=== PATIENT | female | born 1960 | race Caucasian/White ===

== ENCOUNTER 2016-12-05 10:37 | Day surgery (SDC) | payer BC ==
[2016-12-04 09:40] VITALS: BMI 38.4
[~2016-12-05 10:37] MED LIST: LACTATED RINGERS 1,000 ML IV SCH
[2016-12-05 11:13] VITALS: RESP 16; TEMP 97.7
[2016-12-05] MEDS ORDERED: PROPOFOL 10 MG/ML 20 ML VIAL IV ONE (11:55)
--- NOTE | 2016-12-05 11:58 | P.GSHP ---
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 She's had issues with reflux. She has a known hiatal hernia. - Constitutional Constitutional: Reports as per HPI Past Medical History Past Medical History: GERD/Reflux, Hyperlipidemia Additional Past Medical History / Comment(s): hiatal hernia History of Any Multi-Drug Resistant Organisms: None Reported Past Surgical History: Bladder Surgery, Hernia Repair, Hysterectomy, Joint Replacement Additional Past Surgical History / Comment(s): pasha. knee replacement Past Anesthesia/Blood Transfusion Reactions: No Reported Reaction Past Psychological History: Anxiety, Depression Smoking Status: Never smoker Past Alcohol Use History: Rare Past Drug Use History: None Reported - Past Family History Mother Family Medical History: No Reported History Medications and Allergies Home Medications Medication Instructions Recorded Confirmed Type Omeprazole [PriLOSEC] 40 mg PO HS 12/04/16 12/05/16 History Potassium 99 mg PO DAILY 12/04/16 12/05/16 History Simvastatin [Zocor] 40 mg PO HS 12/04/16 12/05/16 History Venlafaxine HCl [Effexor] 75 mg PO DAILY 12/04/16 12/05/16 History buPROPion XL [Wellbutrin Xl] 150 mg PO HS 12/04/16 12/05/16 History Allergies Allergy/AdvReac Type Severity Reaction Status Date / Time nickel Allergy Unknown Verified 12/04/16 09:22 Surgical - Exam Vital Signs Temp Pulse Resp BP Pulse Ox 97.7 F 82 16 186/87 97 12/05/16 11:12 12/05/16 11:12 12/05/16 11:12 12/05/16 11:12 12/05/16 11:12 - General well developed, no distress - Eyes PERRL - ENT normal pinna - Neck no masses - Respiratory normal expansion - Cardiovascular Rhythm: regular - Abdomen Abdomen: soft, non tender Assessment and Plan Plan: GERD. We'll perform EGD.
--- NOTE | 2016-12-05 12:07 | P.OP ---
Date of Procedure: 12/05/16 Preoperative Diagnosis: GERD Postoperative Diagnosis: Antral gastritis Small hiatal hernia Mild esophagitis Procedure(s) Performed: EGD Anesthesia: MAC Surgeon: Rogelio Puentes Pathology: other (Antrum, esophagus) Condition: stable Disposition: PACU Description of Procedure: The patient's placed on the endoscopy table in the lateral position. She received IV sedation. The gastroscope some placed oropharynx and passed into the esophagus and into the stomach. The scope was then placed through the pylorus. First and second portion of duodenum appeared normal. Scope was then brought back the antrum and appeared to be some evidence of inflammation. This area is biopsied. The scope was then retroflexed and the remainder of the stomach appeared normal. There was a small hiatal hernia. The distal esophagus appeared minimally inflamed a biopsies performed. The GE junction was at 39 cm. The proximal esophagus appeared normal. Scope was withdrawn for patient.
[2016-12-05 12:33] VITALS: BP 140/90; PULSE 70
== END 2016-12-05 13:27 | disposition home or self-care (01) ==
LOC: ORWHC2ENDO 10:37
PROVIDERS: ATTEND Surgery
DX: K21.0 Gastro-esophageal reflux disease with esophagitis (principal); K29.50 Unspecified chronic gastritis without bleeding; K44.9 Diaphragmatic hernia without obstruction or gangrene; E78.5 Hyperlipidemia, unspecified; F41.9 Anxiety disorder, unspecified; F32.9 Major depressive disorder, single episode, unspecified; Z79.899 Other long term (current) drug therapy; Z91.09 Other allergy status, other than to drugs and biological substances
CPT/HCPCS: 88305; 88342; 43239; J2704

== ENCOUNTER → 2018-06-04 | Outpatient (CLI) | payer BC ==
[2018-06-04 15:41] VITALS: BP 145/83; PULSE 70; RESP 18; TEMP 98.5; BMI 41.1
--- NOTE | 2018-06-04 16:35 | P.GSHP ---
History of Present Illness H&P Date: 06/04/18 Chief Complaint: Mammogram left breast The patient is a 58-year-old white female who presents with a complaint of a mammographic abnormality noted in her left breast. This was in the upper outer quadrant region. This was not seen on ultrasound. The patient states that she was told she did not have any lesions of concern in the right breast although the report is not present at this time. The patient denies any masses or nodules in either breast. She denies any pain in either breast. She denies any nipple discharge or skin changes of either breast. The patient has not had any trauma or infection in either breast. She did have a benign breast biopsy in the past. Family history: Paternal grandmother: Breast cancer Father: Cancer he was a smoker Hormonal history: Menarche: 10 Pregnancies: 4, 1 miscarriage 3 live births, firstborn at 20, did breast feed 2 children Menopause: Her 40s control pills: Negative Hormones: Negative Past surgical history: 1. Cholecystectomy 2. Appendectomy 3. Tonsillectomy 4. Bilateral knee replacement 5. hysterectomy with bladder suspension 6. Hernia repair Medical history: 1. Reflux 2. Depression Social history: Smoking: Negative Alcohol: Negative Drugs: Negative - Constitutional Comment: BMI 41.2 Constitutional: Denies chills, Denies fever - EENT Eyes: denies blurred vision, denies pain Ears: deny: decreased hearing, tinnitus Ears, nose, mouth and throat: Denies headache, Denies sore throat - Breasts Breasts: bilateral: as per HPI - Cardiovascular Cardiovascular: Reports high blood pressure, Denies chest pain, Denies shortness of breath - Respiratory Respiratory: Denies cough, Denies 7 - Gastrointestinal Gastrointestinal: Denies abdominal pain, Denies diarrhea, Denies nausea, Denies vomiting - Genitourinary (Female) Genitourinary: Denies dysuria, Denies hematuria - Menstruation Menstruation: Reports postmenopausal - Genitourinary (Male) Genitourinary: Denies dysuria, Denies hematuria - Musculoskeletal Comment: bilateral knee replacement/arthritis - Integumentary Integumentary: Denies pruritus, Denies rash - Neurological Neurological: Denies numbness, Denies weakness - Psychiatric Psychiatric: Reports anxiety, Reports depression - Endocrine Endocrine: Denies fatigue, Denies weight change - Hematologic/Lymphatic Comment: none - Allergic/Immunologic Comment: as noted Past Medical History Past Medical History: GERD/Reflux, Hyperlipidemia Additional Past Medical History / Comment(s): hiatal hernia History of Any Multi-Drug Resistant Organisms: None Reported Past Surgical History: Bladder Surgery, Hernia Repair, Hysterectomy, Joint Replacement Additional Past Surgical History / Comment(s): pasha. knee replacement Past Anesthesia/Blood Transfusion Reactions: No Reported Reaction Past Psychological History: Anxiety, Depression Smoking Status: Never smoker Past Alcohol Use History: Rare Past Drug Use History: None Reported - Past Family History Mother Family Medical History: No Reported History Medications and Allergies Home Medications Medication Instructions Recorded Confirmed Type Omeprazole [PriLOSEC] 40 mg PO HS 12/04/16 06/04/18 History Potassium 99 mg PO DAILY 12/04/16 06/04/18 History Simvastatin [Zocor] 40 mg PO HS 12/04/16 06/04/18 History Venlafaxine HCl [Effexor] 75 mg PO DAILY 12/04/16 06/04/18 History buPROPion XL [Wellbutrin Xl] 150 mg PO HS 12/04/16 06/04/18 History Metoprolol Tartrate [Lopressor] 50 mg PO DAILY 06/04/18 06/04/18 History Allergies Allergy/AdvReac Type Severity Reaction Status Date / Time nickel Allergy Unknown Verified 12/04/16 09:22 Surgical - Exam Vital Signs Temp Pulse Resp BP Pulse Ox 98.5 F 70 18 145/83 96 06/04/18 15:34 06/04/18 15:34 06/04/18 15:34 06/04/18 15:34 06/04/18 15:34 BMI 41.2 - General obese - Eyes normal ocular movement - ENT no hearing loss, no congestion - Neck no masses, trachea midline - Respiratory normal respiratory effort, clear to auscultation - Cardiovascular Rhythm: regular Heart Sounds: normal: S1, S2 - Abdomen Abdomen: soft, non tender, no guarding, no rigid, no rebound - Integumentary tattoo no abnormal pigmentation - Neurologic no disoriented, no combative - Musculoskeletal normal gait, normal posture - Psychiatric oriented to time, oriented to person, oriented to place, speech is normal, memory intact Breast examination: Right breast: Multi-positional exam no dominant masses or nodules of concern Right axilla: No adenopathy of concern Left breast: Slight increase in fullness in the left breast in the upper outer quadrant region no discrete masses or nodules of concern are multi-positional exam Left axilla: No adenopathy of concern Results Report of diagnostic mammogram and ultrasound left breast reviewed Assessment and Plan Assessment: Impression: 1. Radiographic abnormality left breast 2. Ultrasound did not find lesion concordant with that seen on mammographic abnormality left breast 3. Depression 4. HTN Plan: 1. Stereotactic core biopsy left breast 2. Will obtain radiographs [facility] 3. Medical management of medical problems Risk and benefits sister tactic core biopsy were discussed with the patient and she wishes to proceed. Cc: Donna Katz
== END ==
LOC: WWCWWP 15:12
PROVIDERS: ATTEND Surgery
DX: Z53.9 Procedure and treatment not carried out, unspecified reason (principal)

== ENCOUNTER → 2018-06-17 | Day surgery (SDC) | payer BC ==
[2018-06-17 07:22] VITALS: RESP 16; BMI 41.1
[2018-06-17 08:44] VITALS: BP 139/84; PULSE 69; TEMP 98.4
--- NOTE | 2018-06-17 11:29 | P.OP ---
Date of Procedure: 06/17/18 Preoperative Diagnosis: Microcalcifications of concern left breast Postoperative Diagnosis: Microcalcifications of concern left breast in a spiculated area in the upper outer quadrant Procedure(s) Performed: Left breast stereotactic core biopsy Anesthesia: local Surgeon: Audrey Tuttle Estimated Blood Loss (ml): 0 Pathology: other (breast tissue) Condition: stable Disposition: same day Indications for Procedure: The patient is a 58-year-old white female who on a routine mammogram was noted to have an area of concern in the left breast. She subsequently underwent diagnostic left breast mammography with spot compression CC and MLO views. On the stereo is a persistent spiculated area in the upper outer region 7.6 cm from the nipple. This had pleomorphic calcifications within it. An ultrasound had also been performed which revealed cystic areas which were discordant with the mammographic findings. It was therefore recommended that the patient undergo a stereotactic core biopsy of the left breast. Risk and benefits of the procedure were discussed with the patient as well as alternatives and the patient wished to proceed. Operative Findings: Microcalcifications Description of Procedure: The patient was brought to the stereotactic room and positioned on this low rad stereotactic table. Clay Mixer films were obtained of the left breast which revealed the area of concern. A CC from above approach was utilized. After the scalp form was performed to stereo views were obtained. The area was targeted. The breast was prepped using Betadine. 20 mL of 1% lidocaine were used to anesthetize the area of concern. A 9-gauge Petit vacuum assisted rotating core biopsy needle was driven to the correct coordinates. Prefire and post-fire films were obtained which revealed the needle was in the correct location. 12 core biopsy specimens were obtained. The specimen revealed that the microcalcifications of concern had been sampled. Following this a tri-effie marker was placed. Confirmation of correct location of the marker was obtained. The patient tolerated the procedure in stable condition. The specimen was sent for pathology. The patient will follow-up with Dr. Dugan in 1 week.
--- NOTE | 2018-06-18 14:30 | MM ---
Stereotactic core biopsy left breast. HISTORY: Microcalcifications. The calcifications in question within the left breast were targeted by the undersigned. The examination was performed by the surgeon. Specimen radiograph demonstrates numerous calcifications within the specimen submitted. Post procedural mammogram demonstrates appropriate deployment of radiopaque clip marker. The patient tolerated the procedure well and left the department in stable condition. Pathology results are pending. IMPRESSION: Successful stereotactic core biopsy left breast with pathology results pending. Pathology Results: Benign LEFT BREAST, NEEDLE CORE BIOPSIES: Fibrocystic spectrum changes including UDH/ florid duct hyperplasia, stromal fibrosis and intraductal mineralizations. Recommendation Follow up mammogram of the left breast in 6 months. MTDD
== END | disposition home or self-care (01) ==
LOC: RADMAMWWP 07:02
PROVIDERS: ATTEND Surgery
DX: N60.32 Fibrosclerosis of left breast (principal); N60.92 Unspecified benign mammary dysplasia of left breast; Z91.048 Other nonmedicinal substance allergy status
CPT/HCPCS: 88305; 19081; A4648; J2001

== ENCOUNTER → 2018-07-01 | Outpatient (CLI) | payer BC ==
[2018-07-01 10:22] VITALS: BP 149/85; PULSE 76; RESP 18; TEMP 98.2; BMI 41.1
--- NOTE | 2018-07-01 11:08 | P.PN ---
Subjective Progress Note Date: 07/01/18 Principal diagnosis: Status post core biopsy of the left breast The patient is a 58-year-old white female status post core biopsy stereotactically of the left breast. This was of a spiculated area with microcalcifications. The biopsy results revealed usual ductal hyperplasia, stromal fibrosis, and intraductal mineralization's. Secondary to some concern for discordance the films were read and reviewed with Dr. Mobley from radiology. He felt that we did sample the area of concern. The pathology slides were reviewed as well and this was felt to be truly ductal hyperplasia without specific atypia. The patient at this time does not have any concerns. She is doing well. Objective - Vital Signs Vital signs: Vital Signs Temp 98.2 F 07/01/18 10:12 Pulse 76 07/01/18 10:12 Resp 18 07/01/18 10:12 BP 149/85 07/01/18 10:12 Pulse Ox 94 L 07/01/18 10:12 Intake & Output 06/30/18 07/01/18 07/01/18 18:59 06:59 18:59 Weight 108.862 kg - Exam BMI 41.2 - Constitutional General appearance: Present: obese - EENT Eyes: Present: EOMI ENT: Present: hearing grossly normal - Neck Neck: Present: normal ROM - Respiratory Respiratory: bilateral: CTA - Cardiovascular Rhythm: regular Heart sounds: normal: S1, S2 - Integumentary Integumentary Comment(s): Puncture site clean and dry left breast - Psychiatric Psychiatric: Present: A&O x's 3, appropriate affect, intact judgment & insight Assessment and Plan Assessment: Impression: 1. Patient status post sterotactic core biopsy of the left breast Plan: 1. Repeat left breast mammogram in physician exam in 6 months time cc: [place]
== END ==
LOC: WWCWWP 09:38
PROVIDERS: ATTEND Surgery
DX: Z53.9 Procedure and treatment not carried out, unspecified reason (principal)

== ENCOUNTER → 2019-07-15 | Outpatient (CLI) | payer BC ==
--- NOTE | 2019-07-18 10:32 | MM ---
Reason for exam: additional evaluation requested from prior study. History: Patient is postmenopausal. Family history of breast cancer in paternal grandmother at age 60. Benign MG stereo VAD BX LT of the left breast, June 17, 2018. Benign stereotactic core biopsy of the left breast, March 24, 2003. Core biopsy of the left breast. Benign excisional biopsy of the right breast. Physical Findings: Nurse did not find any significant physical abnormalities on exam. MG 3D Diag Mammo W/Cad MELODY Bilateral CC and MLO view(s) were taken. The breast tissue is heterogeneously dense. This may lower the sensitivity of mammography. Benign appearing calcifications in the left breast. Left biopsy markers noted at the stable left upper outer quadrant mass biopsied twice, benign. No significant new findings when compared with previous films. These results were verbally communicated with the patient and result sheet given to the patient on 07/15/19. ASSESSMENT: Benign, BI-RAD 2 RECOMMENDATION: Follow-up diagnostic mammogram of both breasts in 1 year.
== END | disposition home or self-care (01) ==
LOC: RADMAMWWP 12:43
PROVIDERS: ATTEND Family Medicine
DX: R92.8 Other abnormal and inconclusive findings on diagnostic imaging of breast (principal)
CPT/HCPCS: 77062; 77066

== ENCOUNTER 2023-10-05 09:52 | Day surgery (SDC) | payer OTHER, MEDICARE ==
[2023-10-01 13:18] VITALS: BMI 42.0
[2023-10-05] MEDS: LACTATED RINGERS 1,000 ML IV ONE (10:06)
[2023-10-05] MEDS ORDERED: PROPOFOL 10 MG/ML 20 ML VIAL IV ONE (10:48)
[2023-10-05] MEDS ORDERED: LIDOCAINE 1% INJ 10MG/ML (20 ML MDV) ONE (10:48)
[2023-10-05 10:53] VITALS: RESP 16; TEMP 97
--- NOTE | 2023-10-05 11:47 | P.GSHP ---
History of Present Illness H&P Date: 10/05/23 Chief Complaint: GERDScreening colonoscopy This a 63-year-old female who presents today for EGD and screening colonoscopy. Patient is GERD. Past Medical History Past Medical History: GERD/Reflux, Hyperlipidemia, Hypertension Additional Past Medical History / Comment(s): hiatal hernia History of Any Multi-Drug Resistant Organisms: None Reported Past Surgical History: Adenoidectomy, Appendectomy, Bladder Surgery, Cholecystectomy, Hernia Repair, Hysterectomy, Joint Replacement, Tonsillectomy Additional Past Surgical History / Comment(s): pasha. knee replacement, colonoscopy , egd Past Anesthesia/Blood Transfusion Reactions: No Reported Reaction Additional Past Anesthesia/Blood Transfusion Reaction / Comment(s): no blood transfusion Smoking Status: Never smoker - Past Family History Mother Family Medical History: No Reported History Father Family Medical History: Cancer Additional Family Medical History / Comment(s): bladder Medications and Allergies Home Medications Medication Instructions Recorded Confirmed Type Omeprazole [PriLOSEC] 40 mg PO HS 12/04/16 10/05/23 History Simvastatin [Zocor] 40 mg PO HS 12/04/16 10/05/23 History Venlafaxine HCl [Effexor] 150 mg PO DAILY 12/04/16 10/05/23 History Metoprolol Tartrate [Lopressor] 50 mg PO DAILY 06/04/18 10/05/23 History LORazepam [Ativan] 0.5 mg PO DAILY 06/10/18 10/05/23 History Famotidine 40 mg PO DAILY 10/01/23 10/05/23 History Levothyroxine Sodium [Synthroid] 50 mcg PO DAILY 10/01/23 10/05/23 History Venlafaxine HCl [Effexor] 37.5 mg PO DAILY 10/01/23 10/05/23 History lamoTRIgine [LaMICtal] 50 mg PO HS 10/01/23 10/05/23 History Allergies Allergy/AdvReac Type Severity Reaction Status Date / Time nickel Allergy Unknown Verified 10/05/23 10:17 Surgical - Exam Vital Signs Temp Pulse Resp BP Pulse Ox 97 F L 99 16 191/96 93 L 10/05/23 10:19 10/05/23 10:19 10/05/23 10:19 10/05/23 10:19 10/05/23 10:19 - General well developed, well nourished, no distress - Eyes PERRL - ENT normal pinna - Neck no masses - Respiratory normal expansion - Cardiovascular Rhythm: regular - Abdomen Abdomen: soft, non tender Assessment and Plan Assessment: GERD we'll perform EGD. We'll also perform screening colonoscopy.
--- NOTE | 2023-10-05 11:50 | P.OP ---
Date of Procedure: 10/05/23 Preoperative Diagnosis: GERD Screening colonoscopy Postoperative Diagnosis: Antral gastritis Small hiatal hernia Mild esophagitis Internal and external hemorrhoids Procedure(s) Performed: EGD Colonoscopy Anesthesia: MAC Surgeon: Rogelio Puentes Pathology: other (Antrum, esophagus) Condition: stable Disposition: PACU Description of Procedure: The patient's placed on the endoscopy table in the lateral position. He received IV sedation. The gastroscope placed oropharynx passed in the esophagus and stomach. Scope was then placed through the pylorus. The first and second portion of the duodenum appeared normal. Scope was brought back the antrum this appeared mildly inflamed. A biopsies performed. Scope was then retroflexed and the remainder of the stomach appeared normal. There was a small hiatal hernia. The GE junction was at 39 cm. The distal esophagus was mildly inflamed a biopsies or. The proximal esophagus appeared normal. Scope withdrawn for patient. Next digital rectal exam performed. This revealed internal/external hemorrhoids. The flexible colonoscope was then placed patient anus and passed throughout the entire colon. The patient had a tortuous colon. The cecum could not be visualized secondary to tortuosity valve. Scope was withdrawn. The visualized right colon, ascending colon, transverse colon and descending colon appeared normal. Scope was brought back and sigmoid colon was normal. Scope back the rectum this appeared normal. Scope withdrawn for patient.
[2023-10-05 12:00] VITALS: BP 168/85; PULSE 98
== END 2023-10-05 12:17 | disposition home or self-care (01) ==
LOC: ORWHC2ENDO 09:52
PROVIDERS: ATTEND Surgery
DX: Z12.11 Encounter for screening for malignant neoplasm of colon (principal); K29.50 Unspecified chronic gastritis without bleeding; K21.00 Gastro-esophageal reflux disease with esophagitis, without bleeding; K44.9 Diaphragmatic hernia without obstruction or gangrene; K64.8 Other hemorrhoids; K64.4 Residual hemorrhoidal skin tags; K56.2 Volvulus; I10 Essential (primary) hypertension; E78.5 Hyperlipidemia, unspecified; E07.9 Disorder of thyroid, unspecified; Z90.49 Acquired absence of other specified parts of digestive tract; Z90.89 Acquired absence of other organs; Z90.710 Acquired absence of both cervix and uterus; Z96.60 Presence of unspecified orthopedic joint implant; Z98.890 Other specified postprocedural states; Z80.0 Family history of malignant neoplasm of digestive organs; Z79.890 Hormone replacement therapy; Z79.899 Other long term (current) drug therapy
CPT/HCPCS: 45378; 88305; 43239; J2001; J2704

== ENCOUNTER → 2024-04-19 | Outpatient (CLI) | payer OTHER, MEDICARE ==
--- NOTE | 2024-04-20 10:37 | CA ---
Transthoracic Echo Report Name: Tosin Coello Age: 64 Gender: F : 1960 Exam Date: 04/19/2024 14:39 Exam Location: [facility] Ht (in): 64 Wt (lb): 250 Ordering Physician: Donna Katz DO Attending/Referring Phys: Senior Behavioral Scientist Procedure CPT: Indications: Z01.818 PRE PRIOCEDURAL EXAM Cardiac Hx: Technical Quality: Fair Contrast 1: Total Dose (mL): Contrast 2: Total Dose (mL): MEASUREMENTS (Male / Female) Normal Values 2D ECHO LV Diastolic Diameter PLAX 5.3 cm 4.2 - 5.9 / 3.9 - 5.3 cm LV Systolic Diameter PLAX 3.5 cm IVS Diastolic Thickness 1.1 cm 0.6 - 1.0 / 0.6 - 0.9 cm LVPW Diastolic Thickness 1.3 cm 0.6 - 1.0 / 0.6 - 0.9 cm LV Relative Wall Thickness 0.5 LVOT Diameter 2.2 cm LA Volume 62.6 cm??? 18 - 58 / 22 - 52 cm??? LA Volume Index 26.9 cm???/m??? 16 - 28 cm???/m??? Ascending Aorta Diameter 3.6 cm DOPPLER AV Peak Velocity 144.9 cm/s AV Peak Gradient 8.4 mmHg AV Mean Velocity 96.8 cm/s AV Mean Gradient 4.2 mmHg AV Velocity Time Integral 27.6 cm LVOT Peak Velocity 97.1 cm/s LVOT Peak Gradient 3.8 mmHg LVOT Velocity Time Integral 19.5 cm LVOT Stroke Volume 77.1 cm??? LVOT Stroke Volume Index 35.9 ml/m??? LVOT Cardiac Index 2322.4 cm???/min???m??? AV Area Cont Eq vti 2.8 cm??? AV Area Cont Eq pk 2.6 cm??? MV Peak Velocity 105.3 cm/s MV Peak Gradient 4.4 mmHg MV Mean Velocity 59.8 cm/s MV Mean Gradient 1.6 mmHg MV Velocity Time Integral 24.3 cm MV Area PHT 3.5 cm??? Mitral E Point Velocity 53.3 cm/s Mitral A Point Velocity 78.0 cm/s Mitral E to A Ratio 0.7 MV Deceleration Time 217.0 ms PV Peak Velocity 71.1 cm/s PV Peak Gradient 2.0 mmHg FINDINGS Left Ventricle Left ventricular ejection fraction is estimated at 55-60 %. Mildly increased septal wall thickness. Moderately increased posterior wall thickness. Left ventricular cavity size normal. No obvious regional wall motion abnormalities. Right Ventricle Normal right ventricular size and function. Unable to estimate the right ventricular systolic pressure. Right Atrium Normal right atrial size. Left Atrium Mildly increased left atrial volume. Mitral Valve Structurally normal mitral valve. No evidence for mitral valve prolapse. No mitral stenosis. Trace mitral regurgitation. Aortic Valve Trileaflet aortic valve. Aortic valve sclerosis. No aortic stenosis. No aortic regurgitation. Tricuspid Valve Structurally normal tricuspid valve. No tricuspid stenosis. No tricuspid regurgitation. Pulmonic Valve Structurally normal pulmonic valve. No pulmonic stenosis. Trace pulmonic regurgitation. Pericardium No pericardial effusion. Prominent epicardial fat. Aorta Normal size aortic root and proximal ascending aorta. CONCLUSIONS Diagnosis: Preop assessment, htn, murmur Moderate LVH with preserved systolic function Aortic sclerosis without significant stenosis Previewed by: Dr. Grayson Roberts MD (Electronically Signed) Final Date: 20 April 2024 10:36
== END | disposition home or self-care (01) ==
LOC: RADECHMAIN 14:27
PROVIDERS: ATTEND Family Medicine
DX: Z01.818 Encounter for other preprocedural examination
CPT/HCPCS: 93306

== ENCOUNTER → 2024-04-22 | Outpatient (CLI) | payer OTHER, MEDICARE | END | disposition home or self-care (01) | LOC: LABPAT 15:12 | PROVIDERS: ATTEND Orthopaedic Surgery | DX: Z01.818 Encounter for other preprocedural examination | CPT/HCPCS: 86850; 86900; 86901; 87070 ==

== ENCOUNTER 2024-05-02 05:49 | Day surgery (SDC) | payer OTHER, MEDICARE ==
[2024-04-26 10:00] VITALS: BMI 42.9
--- NOTE | 2024-05-01 12:08 | HP ---
HISTORY AND PHYSICAL DATE OF SURGERY: 05/02/2024. HISTORY OF PRESENT ILLNESS: The patient seen with symptomatic left hip osteoarthritis. After having treatment options discussed, she elected to proceed with direct anterior left total hip arthroplasty. Consent regarding the procedure was obtained. Medical clearance was provided by Dr. Donna Katz, cardiac clearance by Dr. Lewis. PAST MEDICAL HISTORY: Gastroesophageal reflux disease, hypertension. PAST SURGICAL HISTORY: Total knee arthroplasty, appendectomy, hysterectomy, cholecystectomy. MEDICATIONS: 1. Omeprazole. 2. Toprol. 3. Pepcid. ALLERGIES: Nickel. SOCIAL HISTORY: She denies tobacco use. PHYSICAL EVALUATION OF THE LEFT HIP: She has limited range of motion with severe pain. Positive hip impingement sign. Straight-leg raise negative. Distal neurovascular exam is intact. RADIOGRAPHS: Of left hip revealed severe osteoarthritic changes. IMPRESSION: Left hip osteoarthritis. PLAN: Direct anterior left total hip arthroplasty. MMODL / IJN: [id number] /
[~2024-05-02 05:49] MED LIST changes: +ACETAMINOPHEN TAB 500 MG TAB PO PRN; -LACTATED RINGERS 1,000 ML IV SCH; +MELOXICAM 7.5 MG TAB PO PRN; +TRANEXAMIC 1,000 MG/100ML-NACL 1,000 MG in SALINE 1 100ML.BAG IVPB PRN
[2024-05-02] MEDS ORDERED: HYDROmorphone 0.5 MG/0.5 ML SYRINGE IVP PRN (06:03)
[2024-05-02] MEDS ORDERED: LACTATED RINGERS 1,000 ML IV SCH (06:03)
[2024-05-02] MEDS ORDERED: ONDANSETRON 4 MG/2 ML VIAL IVP ONE (06:03)
[2024-05-02] MEDS ORDERED: LIDOCAINE 1% (10MG/ML) FOR IV START INTRADERMA PRN (06:03)
[2024-05-02] MEDS ORDERED: DEXAMETHASONE SOD PHOSPHATE 4 MG/ML 1 ML VIAL IV ONE (06:03)
[2024-05-02] MEDS ORDERED: droPERidol 5 MG/2 ML VIAL IVP PRN (06:03)
[2024-05-02 06:34] VITALS: BP 148/83; PULSE 71; RESP 20; TEMP 97.9
== END 2024-05-02 07:29 | disposition home or self-care (01) ==
LOC: OR 05:49
PROVIDERS: ATTEND Orthopaedic Surgery
DX: M16.12 Unilateral primary osteoarthritis, left hip

== ENCOUNTER → 2024-05-26 | Outpatient (CLI) | payer OTHER, MEDICARE ==
[2024-05-26 19:44] LABS: INR 1.01 sec (0.93-1.11); Prothrombin Time 10.9 sec (9.9-11.9)
[2024-05-26 20:19] LABS: BUN/Creat Ratio 10.25 Ratio (12.00-20.00); Blood Urea Nitrogen 12.3 mg/dL (9.0-27.0); Calcium 9.2 mg/dL (8.7-10.3); Carbon Dioxide 22.2 mmol/L (21.6-31.8); Chloride 106 mmol/L (96-109); Glucose 110 mg/dL (70-110); Potassium 4.4 mmol/L (3.5-5.5); Sodium 141 mmol/L (135-145)
== END | disposition home or self-care (01) ==
LOC: LABWHC1 13:59
PROVIDERS: ATTEND Orthopaedic Surgery
CPT/HCPCS: 36415; 80048; 85610; 86850; 86900; 86901

== ENCOUNTER 2024-06-06 07:47 | Day surgery (SDC) | payer OTHER, MEDICARE ==
--- NOTE | 2024-06-06 07:27 | HP ---
HISTORY AND PHYSICAL SCHEDULED DATE OF SURGERY: 06/06/2024. HISTORY OF PRESENT ILLNESS: Tosin Coello is a patient, who was seen with symptomatic left hip osteoarthritis. We discussed options regarding treatment. She elected to proceed with direct anterior left total hip arthroplasty. Consent obtained. PAST MEDICAL HISTORY: Hypertension. SURGICAL HISTORY: Total knee arthroplasty, appendectomy, hysterectomy. DAILY MEDICATIONS: 1. Omeprazole. 2. Simvastatin. 3. Toprol. 4. Synthroid. ALLERGIES: Nickel. SOCIAL HISTORY: She denies tobacco use. PHYSICAL EVALUATION OF LEFT HIP: She has limited range of motion with pain. Positive hip impingement sign. Straight- leg raise negative. Distal neurovascular exam is intact. IMAGING STUDIES: Radiographs of the left hip revealed severe osteoarthritic changes. IMPRESSION: 1. Left hip osteoarthritis. 2. Hypertension. 3. Hyperlipidemia. 4. Hypothyroidism. PLAN: Direct anterior left total hip arthroplasty. MMODL / IJN: [id number] /
[~2024-06-06 07:47] MED LIST changes: -ACETAMINOPHEN TAB 500 MG TAB PO PRN; +HYDROmorphone 0.5 MG/0.5 ML SYRINGE IVP PRN; -MELOXICAM 7.5 MG TAB PO PRN
[2024-06-06] MEDS: IV FLUID CONTINUATION 1,000 ML IV ONE (08:06)
[2024-06-06 08:36] LABS: HCT 36.7 % (34.0-46.0); HGB 11.7 gm/dL (11.4-16.0); Hypochromasia Slight; MCH 28.1 pg (25.0-35.0); MCHC 31.9 g/dL (31.0-37.0); MCV 88.1 fL (80.0-100.0); Mean Platelet Volume 7.6; Platelet Count 282 k/uL (150-450); RBC 4.17 m/uL (3.80-5.40); RDW 14.1 % (11.5-15.5); WBC 8.8 k/uL (3.8-10.6)
[2024-06-06] MEDS: LACTATED RINGERS 1,000 ML IV SCH ×2 (08:36→15:42)
[2024-06-06] MEDS: MELOXICAM 7.5 MG TAB PO PRN (08:36)
[2024-06-06] MEDS: ACETAMINOPHEN TAB 500 MG TAB PO PRN (08:36)
[2024-06-06] MEDS: DEXAMETHASONE SOD PHOSPHATE 4 MG/ML 1 ML VIAL IV ONE (08:37)
[2024-06-06] MEDS: ONDANSETRON 4 MG/2 ML VIAL IVP ONE (08:37)
[2024-06-06] MEDS: MIDAZOLAM 2 MG/2 ML VIAL IV ONE (09:05)
[2024-06-06] MEDS ORDERED: DEXAMETHASONE SOD PHOSPHATE 4 MG/ML 1 ML VIAL ONE (10:06)
[2024-06-06] MEDS ORDERED: ROPIVACAINE 5 MG/ML 30 ML VIAL ONE (10:06)
[2024-06-06] MEDS ORDERED: SUCCINYLCHOLINE CHLORIDE 200 MG/10 ML VIAL IV ONE (10:06)
[2024-06-06] MEDS ORDERED: ROCURONIUM 10 MG/ML (5 ML VIAL) IV ONE (10:06)
[2024-06-06] MEDS ORDERED: TRANEXAMIC 1,000 MG/100ML-NACL PREMIX BAG ONE (10:06)
[2024-06-06] MEDS ORDERED: HYDROmorphone (PF) 1 MG/ML ONE (10:06)
[2024-06-06] MEDS ORDERED: ePHEDrine 50 MG/ML 1 ML VIAL ONE (10:06)
[2024-06-06] MEDS ORDERED: WATER FOR INJECTION, STERILE 10 ML VIAL IV ONE (10:06)
[2024-06-06] MEDS ORDERED: fentaNYL (PF) 50 MCG/ML 2 ML AMP ONE (10:06)
[2024-06-06] MEDS ORDERED: GLYCOPYRROLATE 0.2 MG/ML 2 ML VIAL ONE (10:06)
[2024-06-06] MEDS ORDERED: LIDOCAINE 1% INJ 10MG/ML (20 ML MDV) ONE (10:06)
[2024-06-06] MEDS ORDERED: MIDAZOLAM 2 MG/2 ML VIAL ONE (10:06)
[2024-06-06] MEDS ORDERED: PROPOFOL 10 MG/ML 20 ML VIAL IV ONE (10:06)
[2024-06-06] MEDS ORDERED: NEOSTIGMINE 1 MG/ML 10 ML VIAL ONE (10:06)
[2024-06-06] MEDS ORDERED: PHENYLEPHRINE 10 MG/ML VIAL ONE (10:06)
[2024-06-06] MEDS: LACTATED RINGERS 1,000 ML IV ONE (11:00)
--- NOTE | 2024-06-06 12:00 | XR ---
Intraoperative/procedural fluoroscopic services were provided for left total hip arthroplasty. Natalya re appears in appropriate position. Total fluoroscopy time is 17 seconds with a total of 3 submitted images to PACS. Total DAP 1.6279 Gycm2. Please see the operative note for further details. [facility], , 06/06/2024 11:58 AM
[2024-06-06] MEDS ORDERED: HYDROmorphone 0.5 MG/0.5 ML SYRINGE IVP PRN (12:02)
[2024-06-06] MEDS ORDERED: NALOXONE 0.4 MG/ML 1 ML VIAL IV PRN (12:02)
[2024-06-06] MEDS ORDERED: HYDROmorphone 2 MG/ML 1 ML SYRINGE IVP PRN (12:02)
[2024-06-06] MEDS ORDERED: ONDANSETRON 4 MG/2 ML VIAL IVP PRN (12:02)
[2024-06-06] MEDS ORDERED: HYDROcodone/APAP 5-325MG 1 EACH TAB PO PRN (12:02)
--- NOTE | 2024-06-06 12:02 | P.OP ---
Date of Procedure: 06/06/24 Preoperative Diagnosis: Left hip osteoarthritis Postoperative Diagnosis: Left hip osteoarthritis Procedure(s) Performed: Direct anterior left total hip arthroplasty Implants: 1. DePuy Corail 135 degree standard collared KA size 11 press-fit femoral stem 2. DePuy Snover 52 mm press-fit acetabular shell augmented with 2 cancellous screws 3. DePuy Snover neutral polyethylene acetabular liner 36 mm ID 52 mm OD 4. Biolox delta ceramic femoral head +1.5 36 mm Anesthesia: GETA, regional (Erector spinae block) Surgeon: Gerhard Luis Fuel Dock Attendant #1: Mauro Smith Estimated Blood Loss (ml): 45 Pathology: none sent Condition: stable Disposition: PACU Indications for Procedure: 64-year-old patient seen with symptomatic left hip osteoarthritis. After having treatment options discussed, she elected to proceed with total hip arthroplasty. Operative Findings: See description of procedure Description of Procedure: The patient was taken to the operative suite. Patient underwent a general anesthetic by the department of anesthesia. Patient was then transferred to the [place] table. Patient was given preoperative IV antibiotics and TXA. Both lower extremities were placed in standard leg spars. The hip was then prepped and draped in the normal sterile orthopedic fashion. A standard anterior incision was made beginning 3 cm lateral and 1 cm distal to the ASIS extending 10 cm. Dissection was then carried down through the subcutaneous soft tissues down to the fascia overlying the tensor fascia claudio. An incision was now made through the fascia. Careful dissection was taken down exposing the tensor fascia claudio muscle. A Cobra retractor was now placed along the medial femoral neck and a second one along the lateral femoral neck. The venous circumflex vessels were now identified, cauterized and clipped. We identified the anterior hip capsule. An incision was made through the hip capsule along the lateral border. I performed a partial anterior capsulectomy. Retractors were now placed around the femoral neck itself. A femoral neck cut was now made with a sagittal saw. It was completed with an osteotome at the lateral neck area. The femoral head was now removed without difficulty. The extremity was now rotated to 60 of external rotation. It was locked in position. Residual labrum was now debrided out. Serial reaming was performed of the acetabulum while Mauro PEREZ assisted holding an anterior retractor for exposure. Once we reached the appropriate size and a trial was position and fit nicely. The appropriate size was now chosen opened and made available. It was introduced into the acetabulum without difficulty. The C-arm/fluoroscopy was now brought into the operative field. We made sure we had a true AP pelvic view. We now under direct C- arm/fluoroscopy introduced into the acetabular component with appropriate version and inclination. I held the cup in appropriate position while Mauro PEREZ used a mallet to seat the acetabular component. I noted the component now to be well seated and stable. I did decide to go ahead and augment the fixation with 2 cancellous screws a good bite and purchase. The C-arm was pulled back. An appropriate liner was introduced and clicked into position. It was felt to be stable. At this point retractors were removed. The extremity was now placed into 140 external rotation with no traction. The leg was now dropped to the ground and adducted. Appropriate retractors were now positioned along the proximal femur. We also placed our femoral look into position. Additional capsular releasing was performed to gain access to the proximal femur. We now used a box osteotome. A canal finder was now utilized. Serial broaching was now performed with the assistance of Mauro PEREZ tapping the broaches down with a mallet while held the broach in appropriate rotation and position. This was done until we reached the appropriate size with good overall rotational stability. Appropriate calcar planing was performed. A trial head/neck was placed into position. The hip was now reduced. The C- arm/fluoroscopy was brought back into the operative field. I obtained an AP pelvis which demonstrated adequate leg length alignment. The trial components appeared adequately sized and positioned. The C-arm/fluoroscopy was pulled back. Retractors were repositioned and the hip was dislocated. The leg was again taken down to the ground and adducted. Appropriate retractors were repositioned as well as the femoral hook. All trial components were removed. The femoral implant was opened along with the femoral head. The femoral implant was introduced on the appropriate handle into our pre-broached area. I held the component position while Mauro PEREZ used a mallet to seat the femoral component. The femoral component was now noted to be well seated and stable.. The femoral head was introduced with good positioning and fixation noted. Retractors were now removed. The hip was now reduced. There appeared be good positioning of the hip confirmed on intraoperative fluoroscopy. Spot films were obtained to document this. A second gram of TXA was given. Bipolar cautery had been utilized intermittently through the procedure for hemostasis. The wound was irrigated copiously with pulse lavage mechanical irrigation. The fascia was repaired with Vicryl suture. The subcutaneous soft tissues were repaired in layers with Vicryl suture. The skin was approximated with pernio/Dermabond. Sterile dressings were applied. Patient was then awakened, transferred to a bed and taken to recovery in stable condition. Mauro PEREZ assisted with the complex procedure.
--- NOTE | 2024-06-06 17:20 | P.ANPRN ---
Procedure Note - Anesthesia - Nerve Block Performed Left Rey Single Time Out Performed: Yes ([id number]) Date of Procedure: 06/06/24 Location of Patient: PreOp Indication: Acute Post-Operative Pain, Analgesia (left hip), Dx/Pain Location, Requested by Surgeon Specifically requested for management of pain by DrJignesh: Gerhard Luis Sedation Type: Sedate with meaningful contact maintained Position: Supine Catheter: None Needle Types: Pajunk Needle Gauge: 21, Other (see comment) Ultrasound used to visualize needle placement: Yes Ultrasound used to observe medication spread: Yes Injectate: 0.5% Ropivacaine (see comment for volume) (25 mL +4 mg of Decadron +10 mL of saline) Blood Aspirated: No Pain Paresthesia on Injection Noted: No Resistance on Injection: Normal Image Stored and Saved: Yes Events: Uneventful and Well Tolerated
[2024-06-06] MEDS: HYDROcodone/APAP 7.5-325MG 1 EACH TAB PO PRN (17:47)
[2024-06-06] MEDS: HYDROmorphone 0.5 MG/0.5 ML SYRINGE IVP PRN (22:01)
[2024-06-06] MEDS: SENNOSIDES-DOCUSATE SODIUM 1 EACH TAB PO SCH (22:02)
[2024-06-06] MEDS: ASPIRIN 325 MG TAB PO SCH (22:02)
--- NOTE | 2024-06-06 22:51 | P.CONS ---
History of Present Illness - Reason for Consult Consult date: 06/06/24 Medical management - History of Present Illness History of present illness; Patient is a 64 year old F with hypertension, hypothyroidism, hyperlipidemia, anxiety/depression and a hiatal hernia who presented for a left total hip arthroplasty secondary to symptomatic left hip osteoarthritis. Patient then followed up with orthopedic surgery outpatient and had planned surgery today. Patient is now postop with no known surgical complications. Patient is sitting comfortably resting in bed with no complaints of pain. Plan was originally for patient to be discharged today, on the day of surgery, however had a noted small infection on one of her digits which has been improving, per primary surgery team's request patient remaining inpatient to receive 2 doses of IV antibiotics. Patient reports absence of fever, chills, weight loss, chest pain, palpitations, diaphoresis, dyspnea, cough, nausea, vomiting, constipation, diarrhea, abdominal pain, weakness, myalgia, dizziness, headache, and dysuria. Internal medicine was consulted for medical management. Initial lab workup revealed WBCs 8.8, Hgb 9.7, hct 36.7, MCV 88.1, PLT 282 REVIEW OF SYSTEMS: All systems reviewed, pertinent positives and negatives noted in HPI. All other symptoms are negative. PHYSICAL EXAMINATION: Vitals reviewed GENERAL: No acute distress. Well developed, well nourished. HEENT: No scleral icterus. Normocephalic, atraumatic. CARDIOVASCULAR: S1 and S2 present. No murmurs, rubs, or gallops. PULMONARY: Chest is clear to auscultation, no wheezing, rhonchi, or crackles. ABDOMEN: Soft, nontender, nondistended, normoactive bowel sounds. No palpable organomegaly. MUSCULOSKELETAL: No apparent joint swelling and deformities. EXTREMITIES: No apparent cyanosis, clubbing, or pedal edema. NEUROLOGICAL: The patient is alert and oriented x3, Gross neurological examination did not reveal any focal deficits. 5/5 strength bilateral UE and LE. SKIN: No apparent rashes. Assessment and plan Tosin Coello is a 64 year old F with hypertension, hypothyroidism and hyperlipidemia, who is being treated for left total hip arthroplasty secondary to symptomatic left hip osteoarthritis. Chronic Medical Conditions #Essential hypertension - Resume home Toprol #Hyperlidemia - Resume home simvastatin #Hypothyroidism - Resume home Synthroid #GERD with hiatal hernia - Resume home omeprazole and famotidine #Anxiety/Depression - Resume home Lamictal and Effexor # Total left hip arthroplasty - Pain management and DVT prophylaxis per primary surgical team F: IV LR 75 mL/hr E: Replete as needed N: Regular diet DVT ppx: per primary surgical team GI ppx: Omeprazole Incentive spirometry ordered Code status: Full code Patient is stable from medical stand point Follow up CBC and CMP in AM Dictation was produced using [employer] dictation software. Please excuse any grammatical, word or spelling errors. Past Medical History Past Medical History: GERD/Reflux, Hyperlipidemia, Hypertension, Thyroid Dis order Additional Past Medical History / Comment(s): hiatal hernia, hypothyroidism, recent finger infection treated w/ antibiotics - hip surgery rescheduled History of Any Multi-Drug Resistant Organisms: None Reported Past Surgical History: Adenoidectomy, Appendectomy, Bladder Surgery, Cholecystectomy, Hernia Repair, Hysterectomy, Joint Replacement, Tonsillectomy Additional Past Surgical History / Comment(s): pasha. knee replacement, colonoscopy , egd/colonoscopy Past Anesthesia/Blood Transfusion Reactions: No Reported Reaction Additional Past Anesthesia/Blood Transfusion Reaction / Comm: no blood transfusion Past Psychological History: Anxiety, Depression Smoking Status: Never smoker Past Alcohol Use History: Rare Past Drug Use History: None Reported - Past Family History Mother Family Medical History: CVA/TIA Additional Family Medical History / Comment(s): still living at age 86 Father Family Medical History: Cancer Additional Family Medical History / Comment(s): bladder Medications and Allergies Home Medications Medication Instructions Recorded Confirmed Type Omeprazole [PriLOSEC] 20 mg PO HS 12/04/16 06/06/24 History Simvastatin [Zocor] 40 mg PO HS 12/04/16 06/06/24 History LORazepam [Ativan] 0.5 mg PO DAILY PRN 06/10/18 06/06/24 History Famotidine 40 mg PO QAM 10/01/23 06/06/24 History Levothyroxine Sodium [Synthroid] 50 mcg PO QAM 10/01/23 06/06/24 History lamoTRIgine [LaMICtal] 50 mg PO HS 10/01/23 06/06/24 History Aspirin 81 mg PO HS 04/26/24 06/06/24 History Metoprolol Succinate (ER) [Toprol 50 mg PO HS 04/26/24 06/06/24 History Xl] Venlafaxine HCl ER [Effexor Xr] 187.5 mg PO HS 04/26/24 06/06/24 History Aspirin [Adult Low Dose Aspirin EC] 81 mg PO BID #60 tab 06/06/24 Rx HYDROcodone/APAP 7.5-325MG [[place] 1 each PO Q6HR PRN #28 tab 06/06/24 Rx 7.5] Sennosides/Docusate Sodium [Senna 1 each PO DAILY #20 capsule 06/06/24 Rx Plus 8.6-50 mg Softgel] Allergies Allergy/AdvReac Type Severity Reaction Status Date / Time nickel Allergy per alg Verified 06/06/24 08:09 testing Physical Exam Vitals: Vital Signs Temp Pulse Resp BP Pulse Ox 06/06/24 20:00 98.2 F 95 16 117/74 94 L 06/06/24 15:41 97.7 F 81 16 140/83 97 06/06/24 15:00 74 16 135/62 97 06/06/24 14:30 75 16 132/63 96 06/06/24 14:00 76 16 127/55 96 06/06/24 13:46 80 16 132/63 95 06/06/24 13:31 79 16 118/56 94 L 06/06/24 13:16 87 18 147/67 95 06/06/24 13:01 85 16 127/58 96 06/06/24 12:45 83 16 137/63 96 06/06/24 12:30 84 16 141/61 96 06/06/24 12:20 96.9 F L 84 16 170/72 96 06/06/24 09:18 64 16 123/58 96 06/06/24 08:19 97.0 F L 77 16 169/74 95 Intake and Output 06/06/24 06/06/24 06/06/24 06:59 14:59 22:59 Intake Total 1350 Output Total 45 Balance 1305 Intake: IV 1350 Output: Estimated Blood Loss 45 Other: # Voids 0 Weight 111.5 kg 111.5 kg Results CBC & Chem 7: 06/06/24 08:26
[2024-06-06] MEDS: VENLAFAXINE HCL ER 150 MG CAP PO SCH (23:36)
[2024-06-06] MEDS: lamoTRIgine 25 MG TAB PO SCH (23:36)
[2024-06-06] MEDS: ATORVASTATIN 20 MG TAB PO SCH (23:36)
[2024-06-06] MEDS: METOPROLOL SUCCINATE (ER) 50 MG TAB.ER.24H PO SCH (23:36)
[2024-06-06] MEDS: VENLAFAXINE HCL ER 37.5 MG CAP PO SCH (23:36)
[2024-06-06] MEDS: PANTOPRAZOLE 40 MG TABLET PO SCH (23:41)
[2024-06-07 03:06] VITALS: RESP 14
[2024-06-07] MEDS: LEVOTHYROXINE 50 MCG TAB PO SCH (05:52)
[2024-06-07 08:35] VITALS: BP 112/65; PULSE 87; TEMP 98.4
[2024-06-07 08:35] LABS: HCT 33.1 % (37.2-46.3); MCH 27.7 pg (27.0-32.0); MCHC 30.2 g/dL (32.0-37.0); MCV 91.7 FL (80.0-97.0); Mean Platelet Volume 10.8 FL (9.5-12.2); NRBC Per 100 WBC 0 X 10*3/uL (0.00-0.01); Platelet Count 270 X 10*3/uL (140-440); RBC 3.61 X 10*6/uL (4.10-5.20); RDW 14.4 % (11.5-14.5); WBC 14.38 X 10*3/uL (4.50-10.00)
[2024-06-07 09:18] LABS: ALT 22 U/L (8-44); AST 43 U/L (13-35); Albumin 3.6 g/dL (3.8-4.9); Albumin/Globulin Ratio 1.64 Ratio (1.60-3.17); Alkaline Phosphatase 65 U/L (41-126); BUN/Creat Ratio 11.25 Ratio (12.00-20.00); Blood Urea Nitrogen 13.5 mg/dL (9.0-27.0); Calcium 8.6 mg/dL (8.7-10.3); Carbon Dioxide 21.9 mmol/L (21.6-31.8); Chloride 102 mmol/L (96-109); Globulin 2.2 g/dL (1.6-3.3); Glucose 117 mg/dL (70-110); Potassium 4.4 mmol/L (3.5-5.5); Sodium 138 mmol/L (135-145); Total Bilirubin <0.2 mg/dL (0.3-1.2); Total Protein 5.8 g/dL (6.2-8.2)
[2024-06-07] MEDS: FAMOTIDINE 20 MG TAB PO SCH (09:28)
--- NOTE | 2024-06-07 09:33 | P.PN ---
Subjective Progress Note Date: 06/07/24 Principal diagnosis: Left hip osteoarthritis Patient was seen at bedside this morning sitting up in chair with dressing present over the left hip. Patient says she just finished working with physical therapy and walked out of the hallway and up and down steps. She says she is l ooking forward to going home later today. She states she was supposed to go home yesterday as a same-day procedure, however, ended up staying in the hospital overnight due to some postoperative pain the day of surgery. Patient doing very well today and has urinated several times since surgery yesterday without issue. Patient denies any other issues at this time. Objective - Vital Signs Vital signs: Vital Signs Temp 98.4 F 06/07/24 08:00 Pulse 87 06/07/24 08:00 Resp 14 06/07/24 08:00 BP 112/65 06/07/24 08:00 Pulse Ox 96 06/07/24 08:00 FiO2 Intake & Output 06/06/24 06/07/24 06/07/24 18:59 06:59 18:59 Intake Total 1350 1250 Output Total 45 Balance 1305 1250 Weight 111.5 kg Intake: IV 1350 Intake, IV Titration 1250 Amount Lactated Ringers 1,000 ml 1200 @ 100 mls/hr IV .Q10H PJ Rx#:[id number] ceFAZolin 2 gm In Sodium 50 Chloride 0.9% 50 ml @ 100 mls/hr IVPB Q8H PJ Rx#: [id number] Output: Estimated Blood Loss 45 Other: # Voids 0 1 - Exam Left hip: Incision is clean, dry, and intact. The exofin fusion tape is in good condition. There is minimal soft tissue swelling and ecchymosis surrounding the medial and lateral aspects of the incision. Calf is soft, no tenderness with palpation. Plantar flexion, dorsiflexion, EHL, FHL are intact. Sensory exam to light touch throughout the extremity is intact, dorsal pedis pulses 2+. - Labs CBC & Chem 7: 06/07/24 04:12 06/07/24 04:12 Labs: Abnormal Lab Results - Last 24 Hours (Table) 06/07/24 06/07/24 Range/Units 04:12 04:12 WBC 14.38 H (4.50-10.00) X 10*3/uL RBC 3.61 L (4.10-5.20) X 10*6/uL Hgb 10.0 L (12.0-15.0) g/dL Hct 33.1 L (37.2-46.3) % MCHC 30.2 L (32.0-37.0) g/dL Anion Gap 14.10 H (4.00-12.00) mmol/L Est GFR (CKD-EPI) 50 L (>=60) BUN/Creatinine Ratio 11.25 L (12.00-20.00) Ratio Glucose 117 H (70-110) mg/dL Calcium 8.6 L (8.7-10.3) mg/dL Total Bilirubin <0.2 L (0.3-1.2) mg/dL AST 43 H (13-35) U/L Total Protein 5.8 L (6.2-8.2) g/dL Albumin 3.6 L (3.8-4.9) g/dL Assessment and Plan Assessment: 1. Left hip osteoarthritis -Postop day 1 status post direct anterior left total hip arthroplasty Plan: 1. Left hip osteoarthritis -left total hip arthroplasty performed yesterday, 06/06/2024. Patient stable bedside this morning. Patient did do well with therapy this morning. Patient does have a walker for home. Discharge home to day with health services. 2. Appreciate medical management 3. Pain management -[place] 4. DVT prophylaxis -aspirin 5. GI prophylaxis -senna 6. PT/OT -weightbearing as tolerated with walker 7. Encourage incentive spirometer use 8. Discharge planning -home today with health services Time with Patient: Less than 30
[2024-06-07 10:12] LABS: Basophils # (A) 0.04 X 10*3/uL (0.00-0.10); Basophils % (A) 0.3 %; Eosinophils # (A) 0.01 X 10*3/uL (0.04-0.35); Eosinophils % (A) 0.1 %; Lymphocytes # (A) 1.98 X 10*3/uL (0.90-5.00); Lymphocytes % (A) 13.8 %; Monocytes # (A) 1.56 X 10*3/uL (0.20-1.00); Monocytes % (A) 10.8 %; Neutrophils # (A) 10.75 X 10*3/uL (1.80-7.70); Neutrophils % (A) 74.7 %; RBC Morphology Normal (Normal)
[2024-06-07] MEDS ORDERED: MULTIVITAMINS, THERA 1 EACH TAB PO SCH (12:00)
[2024-06-07] MEDS ORDERED: METOPROLOL SUCCINATE (ER) 50 MG TAB.ER.24H PO SCH (21:00)
== END 2024-06-07 11:06 | disposition home health service (06) ==
LOC: OR 07:47 → 4SSUR 12:20 → OR 06-07 11:06
PROVIDERS: ATTEND Orthopaedic Surgery
DX: M16.12 Unilateral primary osteoarthritis, left hip (principal); E03.9 Hypothyroidism, unspecified; E78.5 Hyperlipidemia, unspecified; G89.18 Other acute postprocedural pain; I10 Essential (primary) hypertension; Z90.49 Acquired absence of other specified parts of digestive tract; Z90.710 Acquired absence of both cervix and uterus
CPT/HCPCS: 97161; 64999; 80053; 85025; 85027; 73501; 27130; C1776; J2250; J0330; J1100; J2710; J0690 ×2; J2405; J2003; J3010; J1171 ×2; J2795; J2704; J2371; J1596